=== PATIENT | female | born 1960 | race Caucasian/White ===

== ENCOUNTER 2024-09-24 16:03 | Inpatient (IN) | payer BC ==
[~2024-09-24] VITALS: Ht 162.6 cm; Wt 108.9 kg
[2024-09-24 16:47] VITALS: TEMP 97.8
[2024-09-24 17:00] LABS: BASOPHILS % 0.5 % (0.0-1.0); EOSINOPHILS # (AUTO) 0.2 (0.0-0.4); EOSINOPHILS % 2.1 % (0.0-6.0); HEMATOCRIT 24.6 % (34.2-44.1); HEMOGLOBIN 7.8 g/dL (12.0-16.0); LYMPHOCYTES # (AUTO) 0.9 (1.0-3.2); LYMPHOCYTES % 10.9 % (18.0-39.1); MEAN CORPUSCULAR HEMOGLOBIN 31.1 pg (28-32); MEAN CORPUSCULAR HGB CONC 31.7 g/dL (31-35); MONOCYTES # (AUTO) 0.7 (0.2-0.8); NEUTROPHILS # (AUTO) 6.4 (2.1-6.9); NEUTROPHILS % 77.4 % (38.7-80.0); PLATELET COUNT 190 x10e3/uL (140-360); RED BLOOD COUNT 2.51 x10e6/uL (3.6-5.1); RED CELL DISTRIBUTION WIDTH 18.9 % (11.7-14.4); WHITE BLOOD COUNT 8.23 x10e3/uL (4.8-10.8)
[2024-09-24 17:03] LABS: INR 0.99; PROTHROMBIN TIME 13.7 seconds (11.9-14.5)
[2024-09-24 17:04] LABS: PARTIAL THROMBOPLASTIN TIME 39.2 seconds (23.8-35.5)
[2024-09-24 17:12] LABS: ALBUMIN 2.1 g/dL (3.5-5.0); ALBUMIN/GLOBULIN RATIO 0.6 (0.8-2.0); ALKALINE PHOSPHATASE 109 IU/L (40-150); ANION GAP 16.2 mmol/L (8-16); BILIRUBIN,TOTAL 0.3 mg/dL (0.2-1.2); BLOOD UREA NITROGEN 27 mg/dL (7-26); BUN/CREATININE RATIO 11 (6-25); CALCIUM 8.3 mg/dL (8.4-10.2); CARBON DIOXIDE 17 mmol/L (22-29); CHLORIDE 114 mmol/L (98-107); CREATINE KINASE 50 IU/L (29-168); CREATININE, SERUM 2.55 mg/dL (0.57-1.11); EST GLOMERULAR FILTRATION RATE 21 ML/MIN (>=60); GLUCOSE 107 mg/dL (74-118); MAGNESIUM 1.7 MG/DL (1.3-2.1); SODIUM 144 mmol/L (136-145); TOTAL PROTEIN 5.9 g/dL (6.5-8.1)
[2024-09-24 17:17] LABS: ALANINE AMINOTRANSFERASE < 6 IU/L (0-55); POTASSIUM 3.2 mmol/L (3.5-5.1); TROPONIN I 0.007 ng/mL (0-0.300)
[2024-09-24 18:00] VITALS: RESP 18
[2024-09-24 20:00] VITALS: BP 145/69; PULSE 85; PULSE 88; RESP 20; TEMP 98.2; O2SAT 100
[2024-09-24] MEDS: Morphine 2mg Syringe 2 MG/ML SYR IV PRN (21:40)
[2024-09-24 21:55] VITALS: BP 140/71; PULSE 72; RESP 18; TEMP 98.3; O2SAT 100
[2024-09-24] MEDS ORDERED: METOLAZONE5 MG PO (22:18)
[2024-09-24] MEDS ORDERED: NIFEDIPINE ER30 M1 PO (22:18)
[2024-09-24] MEDS ORDERED: PROTONIX20 MG PO (22:18)
[2024-09-24] MEDS ORDERED: CARVEDILOL3.125 MG PO (22:18)
[2024-09-24] MEDS ORDERED: AMLODIPINE BESYL5 MG PO (22:18)
[2024-09-24] MEDS ORDERED: TIZANIDINE HCL4 M1 PO (22:18)
[2024-09-24] MEDS ORDERED: ATORVASTATIN CA20 MG PO (22:18)
[2024-09-24] MEDS ORDERED: PROMETHAZINE HC25 M1 PO (22:18)
[2024-09-24] MEDS ORDERED: LEVOTHYROXINE75 MCG PO (22:18)
[2024-09-24] MEDS ORDERED: SODIUM BICARBO650 MG PO (22:18)
[2024-09-24 22:20] VITALS: BP 140/71; PULSE 72; RESP 18; TEMP 98.3; O2SAT 100
[2024-09-24 22:50] VITALS: BP 140/71; PULSE 72; RESP 18; TEMP 98.3; O2SAT 100
[2024-09-25] VITALS (11 sets, daily range): BP systolic 129–163; BP diastolic 55–69; PULSE 74–91; RESP 17–21; TEMP 97.3–98.6; O2SAT 92–100
[2024-09-25 05:45] LABS: BASOPHILS % 0.5 % (0.0-1.0); EOSINOPHILS # (AUTO) 0.2 (0.0-0.4); EOSINOPHILS % 3.2 % (0.0-6.0); HEMATOCRIT 24.8 % (34.2-44.1); HEMOGLOBIN 7.4 g/dL (12.0-16.0); LYMPHOCYTES # (AUTO) 0.9 (1.0-3.2); LYMPHOCYTES % 14.7 % (18.0-39.1); MEAN CORPUSCULAR HEMOGLOBIN 31.1 pg (28-32); MEAN CORPUSCULAR HGB CONC 29.8 g/dL (31-35); MEAN CORPUSCULAR VOLUME 104.2 fL (81-99); MONOCYTES # (AUTO) 0.5 (0.2-0.8); NEUTROPHILS # (AUTO) 4.3 (2.1-6.9); NEUTROPHILS % 71.6 % (38.7-80.0); PLATELET COUNT 131 x10e3/uL (140-360); RED BLOOD COUNT 2.38 x10e6/uL (3.6-5.1); RED CELL DISTRIBUTION WIDTH 19.1 % (11.7-14.4); WHITE BLOOD COUNT 5.98 x10e3/uL (4.8-10.8)
[2024-09-25 05:50] LABS: INR 1.01; PARTIAL THROMBOPLASTIN TIME 39.4 seconds (23.8-35.5); PROTHROMBIN TIME 13.9 seconds (11.9-14.5)
[2024-09-25 06:08] LABS: ALBUMIN 1.9 g/dL (3.5-5.0); ALBUMIN/GLOBULIN RATIO 0.5 (0.8-2.0); ALKALINE PHOSPHATASE 101 IU/L (40-150); ANION GAP 15.3 mmol/L (8-16); BILIRUBIN,TOTAL 0.3 mg/dL (0.2-1.2); BLOOD UREA NITROGEN 27 mg/dL (7-26); BUN/CREATININE RATIO 11 (6-25); CALCIUM 8.1 mg/dL (8.4-10.2); CARBON DIOXIDE 17 mmol/L (22-29); CHLORIDE 115 mmol/L (98-107); CREATININE, SERUM 2.43 mg/dL (0.57-1.11); EST GLOMERULAR FILTRATION RATE 22 ML/MIN (>=60); GLUCOSE 171 mg/dL (74-118); SODIUM 144 mmol/L (136-145); TOTAL PROTEIN 5.5 g/dL (6.5-8.1)
[2024-09-25 06:10] LABS: ALANINE AMINOTRANSFERASE < 6 IU/L (0-55); POTASSIUM 3.3 mmol/L (3.5-5.1)
[2024-09-25 06:33] LABS: FOLATE 2.5 ng/mL (7.0-15.4)
[2024-09-25 06:36] LABS: TROPONIN I 0.002 ng/mL (0-0.300)
[2024-09-25 07:09] LABS: FERRITIN 90.35 ng/mL (4.63-204.00)
[2024-09-25 13:23] LABS: CREATINE KINASE 42 IU/L (29-168)
[2024-09-25 13:35] LABS: TROPONIN I < 0.001 ng/mL (0-0.300)
[2024-09-25] MEDS: IRON SUCROSE 100 MG in SODIUM CHLORIDE 0.9% 100 ML IV SCH (15:13)
[2024-09-25] MEDS: FOLIC ACID 1 MG TAB PO SCH (15:14)
[2024-09-25] MEDS ORDERED: ACETAMINOPHEN 325 MG TAB PO PRN (16:30)
[2024-09-25] MEDS ORDERED: POLYETHYLENE GLYCOL 3350 17 GM PACK PO PRN (16:30)
[2024-09-25] MEDS ORDERED: HYDRALAZINE HCL 20 MG/ML VIAL IV PRN (16:30)
[2024-09-25] MEDS ORDERED: DEXTROSE 50% SYRINGE 50 ML IV PRN (17:45)
[2024-09-25] MEDS: INSULIN REGULAR, HUMAN 100 UNIT/1 ML SQ SCH (20:15)
[2024-09-26] VITALS (11 sets, daily range): BP systolic 142–158; BP diastolic 62–70; PULSE 80–100; RESP 17–21; TEMP 98–98.7; O2SAT 96–100
[2024-09-26 05:21] LABS: BASOPHILS % 0.5 % (0.0-1.0); EOSINOPHILS # (AUTO) 0.2 (0.0-0.4); EOSINOPHILS % 3.1 % (0.0-6.0); HEMATOCRIT 22.6 % (34.2-44.1); LYMPHOCYTES # (AUTO) 0.9 (1.0-3.2); LYMPHOCYTES % 15.2 % (18.0-39.1); MEAN CORPUSCULAR HEMOGLOBIN 31.4 pg (28-32); MEAN CORPUSCULAR HGB CONC 31.4 g/dL (31-35); MONOCYTES # (AUTO) 0.6 (0.2-0.8); MONOCYTES % 9.5 % (4.4-11.3); NEUTROPHILS # (AUTO) 4.4 (2.1-6.9); NEUTROPHILS % 70.6 % (38.7-80.0); PLATELET COUNT 146 x10e3/uL (140-360); RED BLOOD COUNT 2.26 x10e6/uL (3.6-5.1); RED CELL DISTRIBUTION WIDTH 18.6 % (11.7-14.4); WHITE BLOOD COUNT 6.19 x10e3/uL (4.8-10.8)
[2024-09-26 05:27] LABS: HEMOGLOBIN 7.1 g/dL (12.0-16.0)
[2024-09-26 06:10] LABS: ALANINE AMINOTRANSFERASE < 6 IU/L (0-55); ALBUMIN 1.8 g/dL (3.5-5.0); ALBUMIN/GLOBULIN RATIO 0.5 (0.8-2.0); ALKALINE PHOSPHATASE 94 IU/L (40-150); ANION GAP 12.4 mmol/L (8-16); BILIRUBIN,TOTAL 0.3 mg/dL (0.2-1.2); BLOOD UREA NITROGEN 26 mg/dL (7-26); BUN/CREATININE RATIO 10 (6-25); CALCIUM 7.8 mg/dL (8.4-10.2); CARBON DIOXIDE 17 mmol/L (22-29); CHLORIDE 113 mmol/L (98-107); CHOL/HDL RATIO 2.5 (3.0-3.6); CHOLESTEROL 67 MD/DL (0-199); CREATININE, SERUM 2.67 mg/dL (0.57-1.11); EST GLOMERULAR FILTRATION RATE 19 ML/MIN (>=60); GLUCOSE 148 mg/dL (74-118); HDL CHOLESTEROL 27 MG/DL (40-60); LDL CHOLESTEROL 18 MG/DL (60-130); MAGNESIUM 1.6 MG/DL (1.3-2.1); PHOSPHORUS 3.7 MG/DL (2.3-4.7); POTASSIUM 3.4 mmol/L (3.5-5.1); SODIUM 139 mmol/L (136-145); TOTAL PROTEIN 5.3 g/dL (6.5-8.1); TRIGLYCERIDES 110 MG/DL (0-149)
[2024-09-26 06:20] LABS: FREE T4 (FREE THYROXINE) 0.77 ng/dL (0.8-1.8); THYROID STIMULATING HORMONE 5.829 uIU/mL (0.350-4.940)
[2024-09-26 07:25] LABS: ANISOCYTOSIS SLIGHT; HYPOCHROMASIA SLIGHT; PLATELET ESTIMATE SLIGHTLY DECREASED; PLATELET MORPHOLOGY COMMENT NORMAL; POLYCHROMASIA FEW
[2024-09-26] MEDS: PANTOPRAZOLE SOD 40 MG TABEC PO SCH (08:20)
[2024-09-26] MEDS: SODIUM BICARBONATE 650 MG TAB PO SCH (08:20)
[2024-09-26] MEDS: POTASSIUM CHLORIDE 20 MEQ TAB CR PO STA (17:14)
[2024-09-26] MEDS: MAGNESIUM SULFATE 2GM/50ML 50 ML IV ONE (17:15)
[2024-09-26 19:28] LABS: CLARITY,URINE CLOUDY (CLEAR); COLOR,URINE YELLOW (YELLOW); LEUKOCYTE ESTERASE ,URINE MODERATE (NEGATIVE); NITRITE,URINE NEGATIVE (NEGATIVE); PH,URINE 6 (5 - 7)
[2024-09-26 19:29] LABS: BILIRUBIN,URINE NEGATIVE (NEGATIVE); GLUCOSE, URINE 1+ (NEGATIVE); KETONES,URINE NEGATIVE (NEGATIVE); PROTEIN,URINE DIPSTICK >=300 (NEGATIVE); URINE UROBILINOGEN 0.2 mg/dL (0.2 - 1)
[2024-09-26 19:30] LABS: BACTERIA,URINE MANY /HPF; RBC,URINE 0-5 /HPF (0-5); WBC,URINE (MAN) >50 /HPF (0-5)
[2024-09-26] MEDS: ATORVASTATIN 20 MG TAB PO SCH (21:07)
[2024-09-26] MEDS ORDERED: Morphine 2mg Syringe 2 MG/ML SYR IV PRN (23:30)
[2024-09-26] MEDS: Morphine 4mg INJECTION 4 MG/ML INJ IV ONE (23:35)
[2024-09-27] VITALS (9 sets, daily range): BP systolic 118–153; BP diastolic 52–66; PULSE 80–92; RESP 18–20; TEMP 97.6–98.6; O2SAT 96–100
[2024-09-27 05:45] LABS: BASOPHILS % 0.4 % (0.0-1.0); EOSINOPHILS # (AUTO) 0.1 (0.0-0.4); EOSINOPHILS % 2.8 % (0.0-6.0); LYMPHOCYTES # (AUTO) 0.8 (1.0-3.2); MEAN CORPUSCULAR HEMOGLOBIN 31.4 pg (28-32); MEAN CORPUSCULAR HGB CONC 31.5 g/dL (31-35); MEAN CORPUSCULAR VOLUME 99.6 fL (81-99); MONOCYTES # (AUTO) 0.6 (0.2-0.8); MONOCYTES % 11.8 % (4.4-11.3); NEUTROPHILS # (AUTO) 3.5 (2.1-6.9); NEUTROPHILS % 68.8 % (38.7-80.0); PLATELET COUNT 134 x10e3/uL (140-360); RED BLOOD COUNT 2.23 x10e6/uL (3.6-5.1); RED CELL DISTRIBUTION WIDTH 18.6 % (11.7-14.4); WHITE BLOOD COUNT 5.01 x10e3/uL (4.8-10.8)
[2024-09-27 05:47] LABS: HEMATOCRIT 22.2 % (34.2-44.1)
[2024-09-27 06:12] LABS: ANION GAP 13.6 mmol/L (8-16); CALCIUM 7.8 mg/dL (8.4-10.2); CREATININE, SERUM 2.7 mg/dL (0.57-1.11); POTASSIUM 3.6 mmol/L (3.5-5.1)
[2024-09-27 08:03] LABS: ABG HCO3 18 mmol/L (22-26); ABG PCO2 31 mmHg (35-45); ABG PH 7.39 (7.35-7.45); ABG PO2 129 mmHg (80-105); ABG TCO2 19
[2024-09-27] MEDS: AMLODIPINE BESYLATE 5 MG TAB PO SCH (09:03)
[2024-09-27] MEDS: NIFEDIPINE CR 30 MG TAB PO SCH (09:03)
[2024-09-27] MEDS: LEVOTHYROXINE SODIUM 75 MCG TAB PO SCH (09:03)
[2024-09-27] MEDS: SODIUM BICARBONATE 650 MG TAB PO SCH (09:03)
[2024-09-27] MEDS: CARVEDILOL 3.125 MG TAB PO SCH (09:04)
[2024-09-27] MEDS: METOLAZONE 5 MG TAB PO SCH (09:04)
[2024-09-27] MEDS: ONDANSETRON HCL INJ 2MG/ML 2ML 2 MG/ML VIAL IV PRN (13:24)
[2024-09-27] MEDS: Morphine 4mg INJECTION 4 MG/ML INJ IV PRN (13:25)
[2024-09-27] MEDS: EPOETIN ALFA-EPBX 10,000 UNIT/ML VIAL SC SCH (18:28)
[2024-09-28] VITALS (9 sets, daily range): BP systolic 124–144; BP diastolic 57–74; PULSE 81–96; RESP 17–20; TEMP 98–98.5; O2SAT 96–100
[2024-09-28] MEDS: FUROSEMIDE INJ 10 MG/ML 2 ML VIAL IV ONE (02:19)
[2024-09-28] MEDS: ALBUMIN 25% 25GM 100ML 0.25 GM/ML BTL IV ONE (03:30)
[2024-09-28] MEDS: LEVOTHYROXINE SODIUM 50 MCG TAB PO SCH (06:29)
[2024-09-28 06:34] LABS: BASOPHILS % 0.5 % (0.0-1.0); EOSINOPHILS # (AUTO) 0.2 (0.0-0.4); HEMATOCRIT 24.7 % (34.2-44.1); HEMOGLOBIN 7.8 g/dL (12.0-16.0); LYMPHOCYTES # (AUTO) 0.7 (1.0-3.2); LYMPHOCYTES % 11.8 % (18.0-39.1); MEAN CORPUSCULAR HEMOGLOBIN 31.3 pg (28-32); MEAN CORPUSCULAR HGB CONC 31.6 g/dL (31-35); MEAN CORPUSCULAR VOLUME 99.2 fL (81-99); MONOCYTES # (AUTO) 0.6 (0.2-0.8); MONOCYTES % 9.8 % (4.4-11.3); NEUTROPHILS # (AUTO) 4.4 (2.1-6.9); NEUTROPHILS % 73.9 % (38.7-80.0); PLATELET COUNT 152 x10e3/uL (140-360); RED BLOOD COUNT 2.49 x10e6/uL (3.6-5.1); RED CELL DISTRIBUTION WIDTH 19.1 % (11.7-14.4); WHITE BLOOD COUNT 6.01 x10e3/uL (4.8-10.8)
[2024-09-28 06:54] LABS: ANION GAP 13.8 mmol/L (8-16); CALCIUM 8.1 mg/dL (8.4-10.2); CREATININE, SERUM 2.82 mg/dL (0.57-1.11); POTASSIUM 3.8 mmol/L (3.5-5.1)
[2024-09-28] MEDS: SODIUM CHLORIDE 0.9% 250ML 250 ML IV ONE (10:53)
[2024-09-28] MEDS: LACTATED RINGER'S 500 ML IV SCH (16:05)
[2024-09-29] VITALS (10 sets, daily range): BP systolic 128–148; BP diastolic 57–76; PULSE 74–92; RESP 17–20; TEMP 97.8–98.4; O2SAT 95–99
[2024-09-29 07:30] LABS: ANION GAP 12.8 mmol/L (8-16); CREATININE, SERUM 2.99 mg/dL (0.57-1.11); POTASSIUM 3.8 mmol/L (3.5-5.1)
[2024-09-29] MEDS: LACTATED RINGER'S 500 ML IV ONE (15:33)
[2024-09-29] MEDS ORDERED: Folic Acid PO (20:52)
[2024-09-30] VITALS (10 sets, daily range): BP systolic 118–158; BP diastolic 59–76; PULSE 71–89; RESP 16–20; TEMP 97.9–98.4; O2SAT 94–100
[2024-09-30 05:49] LABS: ANION GAP 14.9 mmol/L (8-16); CREATININE, SERUM 3.12 mg/dL (0.57-1.11); POTASSIUM 3.9 mmol/L (3.5-5.1)
[2024-09-30] MEDS: SODIUM CHLORIDE 0.9% 250ML 250 ML ONE (07:38)
[2024-09-30] MEDS: SODIUM CHLORIDE 0.9% 250ML 250 ML IV ONE (07:38)
[2024-09-30] MEDS: FUROSEMIDE INJ 10 MG/ML 2 ML VIAL ONE (07:39)
[2024-09-30] MEDS: ALBUMIN 25% 25GM 100ML 100 ML ONE (07:39)
[2024-10-01 03:07] VITALS: BP 135/61; PULSE 74; RESP 18; TEMP 98.1; O2SAT 93
[2024-10-01 05:25] LABS: BASOPHILS % 0.6 % (0.0-1.0); EOSINOPHILS # (AUTO) 0.2 (0.0-0.4); EOSINOPHILS % 3.4 % (0.0-6.0); HEMATOCRIT 26.1 % (34.2-44.1); HEMOGLOBIN 8.3 g/dL (12.0-16.0); LYMPHOCYTES # (AUTO) 0.8 (1.0-3.2); LYMPHOCYTES % 11.8 % (18.0-39.1); MEAN CORPUSCULAR HEMOGLOBIN 31.3 pg (28-32); MEAN CORPUSCULAR HGB CONC 31.8 g/dL (31-35); MEAN CORPUSCULAR VOLUME 98.5 fL (81-99); MONOCYTES # (AUTO) 0.7 (0.2-0.8); MONOCYTES % 10.1 % (4.4-11.3); NEUTROPHILS # (AUTO) 4.8 (2.1-6.9); NEUTROPHILS % 72.7 % (38.7-80.0); PLATELET COUNT 174 x10e3/uL (140-360); RED BLOOD COUNT 2.65 x10e6/uL (3.6-5.1); RED CELL DISTRIBUTION WIDTH 19.2 % (11.7-14.4); WHITE BLOOD COUNT 6.55 x10e3/uL (4.8-10.8)
[2024-10-01 06:19] LABS: ANION GAP 13.1 mmol/L (8-16); CALCIUM 8.2 mg/dL (8.4-10.2); CREATININE, SERUM 3.29 mg/dL (0.57-1.11); POTASSIUM 4.1 mmol/L (3.5-5.1)
[2024-10-01 07:34] VITALS: PULSE 82; RESP 20; O2SAT 97
[2024-10-01 08:09] VITALS: BP 132/58; PULSE 83; RESP 20; TEMP 98.3; O2SAT 95
[2024-10-01 09:06] VITALS: BP 132/58; PULSE 83; RESP 20; TEMP 98.3; O2SAT 95
[2024-10-01] MEDS ORDERED: ASCORBIC ACID500 MG PO (11:02)
[2024-10-01] MEDS ORDERED: CALCIUM CITRAT1 EA15 PO (11:02)
[2024-10-01] MEDS ORDERED: ZINC SULFATE50 M1 PO (11:02)
[2024-10-01 11:28] VITALS: BP 135/60; PULSE 91; RESP 20; TEMP 97.5; O2SAT 97
[2024-10-01 13:14] VITALS: PULSE 84; RESP 20; O2SAT 95
[2024-10-01] MEDS: HYDROCODONE/APAP 5MG-325MG TAB PO PRN (14:33)
[2024-10-01] MEDS: MUPIROCIN 2% OINT 22 GM TUBE TOP SCH (15:18)
== END 2024-10-01 16:43 | disposition home or self-care (01) | DRG 812 ==
LOC: ER 16:28 → ERHOLD 20:04 → MED/SURG2 21:19
PROVIDERS: ADMIT Internal Medicine; ATTEND Internal Medicine
PROC: 4A033R1 Measurement of Arterial Saturation, Peripheral, Percutaneous Approach (ICD-10-PCS; 2024-09-26)
PROC: 4A033R1 Measurement of Arterial Saturation, Peripheral, Percutaneous Approach (ICD-10-PCS; 2024-09-26)
PROC: 30233N1 Transfusion of Nonautologous Red Blood Cells into Peripheral Vein, Percutaneous Approach (ICD-10-PCS; principal; 2024-09-27)
DX: D50.9 Iron deficiency anemia, unspecified (principal); E87.20 Acidosis, unspecified; L97.929 Non-pressure chronic ulcer of unspecified part of left lower leg with unspecified severity; L97.919 Non-pressure chronic ulcer of unspecified part of right lower leg with unspecified severity; I13.0 Hypertensive heart and chronic kidney disease with heart failure and stage 1 through stage 4 chronic kidney disease, or unspecified chronic kidney disease; I50.32 Chronic diastolic (congestive) heart failure; Z68.41 Body mass index [BMI] 40.0-44.9, adult; I87.313 Chronic venous hypertension (idiopathic) with ulcer of bilateral lower extremity; I85.10 Secondary esophageal varices without bleeding; N18.4 Chronic kidney disease, stage 4 (severe); E11.22 Type 2 diabetes mellitus with diabetic chronic kidney disease; D63.1 Anemia in chronic kidney disease; I70.249 Atherosclerosis of native arteries of left leg with ulceration of unspecified site; I70.239 Atherosclerosis of native arteries of right leg with ulceration of unspecified site; E11.51 Type 2 diabetes mellitus with diabetic peripheral angiopathy without gangrene; E11.42 Type 2 diabetes mellitus with diabetic polyneuropathy; Z79.4 Long term (current) use of insulin; R60.0 Localized edema; D52.9 Folate deficiency anemia, unspecified; K74.60 Unspecified cirrhosis of liver; E03.9 Hypothyroidism, unspecified; G47.33 Obstructive sleep apnea (adult) (pediatric); Z99.81 Dependence on supplemental oxygen; K64.8 Other hemorrhoids; E66.01 Morbid (severe) obesity due to excess calories; G89.29 Other chronic pain; M54.9 Dorsalgia, unspecified; D47.2 Monoclonal gammopathy; Z86.718 Personal history of other venous thrombosis and embolism; Z66 Do not resuscitate; Z95.828 Presence of other vascular implants and grafts; Z85.44 Personal history of malignant neoplasm of other female genital organs; Z92.21 Personal history of antineoplastic chemotherapy; Z92.3 Personal history of irradiation
CPT/HCPCS: 36415; 71045; 76770; 80048; 80053; 80061; 81001; 82550; 82607; 82728; 82746; 82805; 82948; 83010; 83036; 83540; 83615; 83735; 83880; 84100; 84439; 84443; 84466; 84484; 85025; 85045; 85610; 85730; 86850; 86900; 86920; 87040; 93005; 93306; 93925; 93970; 94799; 96372; 99252; 99284; J1756; J1940; J2270; J2405; J2470; J3475; J7050; J7120; P9016; P9047

== ENCOUNTER 2025-04-19 16:07 | Observation (INO) | payer BC ==
[~2025-04-19] VITALS: Ht 162.6 cm; Wt 99.8 kg
[~2025-04-19 16:07] MED LIST: AMLODIPINE BESYL5 MG PO; ASCORBIC ACID500 MG PO; ATORVASTATIN CA20 MG PO; CALCIUM CITRAT1 EA15 PO; CARVEDILOL3.125 MG PO; Folic Acid PO; LEVOTHYROXINE75 MCG PO; METOLAZONE5 MG PO; NIFEDIPINE ER30 M1 PO; PROMETHAZINE HC25 M1 PO; PROTONIX20 MG PO; SODIUM BICARBO650 MG PO; TIZANIDINE HCL4 M1 PO; ZINC SULFATE50 M1 PO
[2025-04-19 17:09] VITALS: PULSE 98; RESP 18; O2SAT 99
[2025-04-19 17:22] LABS: BASOPHILS % 0.5 % (0.0-1.0); EOSINOPHILS % 2.5 % (0.0-6.0); LYMPHOCYTES % 15.9 % (18.0-39.1); MONOCYTES % 8.2 % (4.4-11.3); NEUTROPHILS % 72.2 % (38.7-80.0); RED CELL DISTRIBUTION WIDTH 18.6 % (11.7-14.4)
[2025-04-19 17:39] LABS: EST GLOMERULAR FILTRATION RATE 25.0 ML/MIN (>=60)
[2025-04-19 17:41] LABS: % IRON SATURATION 14 % (15-50)
[2025-04-19 17:45] VITALS: PULSE 96; RESP 16; TEMP 98.4
[2025-04-19] MEDS ORDERED: POTASSIUM CHLORIDE 20 MEQ TAB CR PO ONE (18:02)
[2025-04-19] MEDS: POTASSIUM CHLORIDE 20 MEQ TAB CR PO STA (18:03)
[2025-04-19 18:20] VITALS: BP 151/55; PULSE 97; RESP 20; TEMP 98.4; O2SAT 100
[2025-04-19] MEDS ORDERED: VITAMIN D250 MCG (19:57)
[2025-04-19] MEDS ORDERED: ASPIRIN81 MG PO (19:57)
[2025-04-19] MEDS ORDERED: SPIRONOLACTONE25 MG PO (19:57)
[2025-04-19] MEDS ORDERED: TORSEMIDE20 MG PO (19:57)
[2025-04-19] MEDS ORDERED: AMITRIPTYLINE H10 MG PO (19:57)
[2025-04-19 21:00] VITALS: BP 162/83; PULSE 90; RESP 18; TEMP 98.2; O2SAT 100
[2025-04-19] MEDS ORDERED: HUMULIN R100 UNIT/2 INJ (21:45)
[2025-04-20] VITALS: BP 168/63; PULSE 85; RESP 18; TEMP 98.1; O2SAT 100
[2025-04-20] MEDS: ACETAMINOPHEN 325 MG TAB PO PRN (03:55)
[2025-04-20 06:23] LABS: BASOPHILS % 0.5 % (0.0-1.0); EOSINOPHILS % 3.2 % (0.0-6.0); LYMPHOCYTES % 21.6 % (18.0-39.1); MONOCYTES % 10.6 % (4.4-11.3); NEUTROPHILS % 63.6 % (38.7-80.0); RED CELL DISTRIBUTION WIDTH 20.0 % (11.7-14.4)
[2025-04-20 06:48] LABS: EST GLOMERULAR FILTRATION RATE 27.0 ML/MIN (>=60)
[2025-04-20 07:41] VITALS: BP 151/71; PULSE 71; RESP 18; TEMP 98.1; O2SAT 97
[2025-04-20] MEDS: SODIUM CHLORIDE 0.9% 250ML 250 ML IV ONE ×2 (08:36)
[2025-04-20] MEDS: SODIUM CHLORIDE 0.9% 250ML 250 ML ONE (08:36)
[2025-04-20] MEDS: IRON SUCROSE 100 MG in SODIUM CHLORIDE 0.9% 100 ML IV SCH (08:42)
[2025-04-20 11:36] VITALS: BP 187/64; PULSE 75; RESP 19; TEMP 98.2; O2SAT 100
[2025-04-20 12:48] VITALS: PULSE 81; RESP 18; O2SAT 100
[2025-04-20 15:54] VITALS: BP 173/66; PULSE 68; RESP 16; TEMP 97.5; O2SAT 100
[2025-04-20 20:38] VITALS: BP 182/74; PULSE 76; RESP 18; TEMP 97.7; O2SAT 100
== END 2025-04-20 19:41 | disposition home or self-care (01) ==
LOC: ER 16:11 → ERHOLD 16:23 → MED/SURG3 18:18
PROVIDERS: ADMIT Family Medicine; ATTEND Family Medicine
DX: D50.9 Iron deficiency anemia, unspecified (principal); I13.0 Hypertensive heart and chronic kidney disease with heart failure and stage 1 through stage 4 chronic kidney disease, or unspecified chronic kidney disease; E11.22 Type 2 diabetes mellitus with diabetic chronic kidney disease; N18.4 Chronic kidney disease, stage 4 (severe); I50.32 Chronic diastolic (congestive) heart failure; Z79.4 Long term (current) use of insulin; E11.42 Type 2 diabetes mellitus with diabetic polyneuropathy; E78.5 Hyperlipidemia, unspecified; E03.9 Hypothyroidism, unspecified; I73.9 Peripheral vascular disease, unspecified; Z89.512 Acquired absence of left leg below knee; K70.30 Alcoholic cirrhosis of liver without ascites; Z86.718 Personal history of other venous thrombosis and embolism; I65.23 Occlusion and stenosis of bilateral carotid arteries; G47.30 Sleep apnea, unspecified; E53.8 Deficiency of other specified B group vitamins
CPT/HCPCS: 36415 ×2; 36430 ×2; 80048 ×2; 82948 ×2; 83540; 84466; 85014; 85018; 85025 ×2; 86850; 86900; 86920 ×2; 94799 ×2; 99284; G0378 ×2; J1756; J7050 ×3; P9016 ×2